=== PATIENT | female | born 1995 | race Caucasian/White ===

== ENCOUNTER 2019-11-09 05:23 | Inpatient (IN) | payer MEDICAID ==
[2019-11-09] MEDS ORDERED: Carboprost Tromethamine 250 MCG/1 ML Amp IM PRN (05:40)
[2019-11-09] MEDS ORDERED: Methylergonovine 0.2 MG/1 ML Amp IM PRN (05:40)
[2019-11-09] MEDS ORDERED: Misoprostol 200 MCG Tab PO PRN (05:40)
[2019-11-09] MEDS ORDERED: Water For Irrigation,Sterile 1,000 ML Container IRR PRN (05:40)
[2019-11-09] MEDS ORDERED: Sodium Chloride 0.9% 10 ML Syringe FLUSH PRN (05:40)
[2019-11-09] MEDS ORDERED: Tranexamic Acid 1,000 MG in Sodium Chloride 0.9% 100 ML IV PRN (05:40)
[2019-11-09] MEDS ORDERED: Nalbuphine 10 MG/1 ML Vial IVPUSH PRN (05:40)
[2019-11-09] MEDS ORDERED: Butorphanol 1 MG/ML SDV IVPUSH PRN (05:40)
[2019-11-09] MEDS ORDERED: Sodium Chloride 0.9% 2.5 ML Syringe FLUSH PRN (05:40)
[2019-11-09] MEDS ORDERED: Ondansetron 4 MG/2 ML SDV IVPUSH PRN (05:40)
[2019-11-09] MEDS ORDERED: Sodium Chloride 0.9% 10 ML SDV IV PRN (05:40)
[2019-11-09] MEDS ORDERED: Lidocaine 1% 50 ML MDV INJECT PRN (05:40)
[2019-11-09] MEDS: Lactated Ringers 1,000 ML IV SCH ×2 (05:45→07:38)
[2019-11-09] MEDS ORDERED: Oxytocin/0.9 % Sodium Chloride 30 UNIT/500 ML BAG IV SCH (05:45)
[2019-11-09] MEDS ORDERED: fentaNYL 100 MCG/2 ML SDV ONE (06:52)
[2019-11-09] MEDS ORDERED: Ropivacaine HCl/PF 100 ML ONE (06:52)
--- NOTE | 2019-11-09 07:14 | PCM.PREANE ---
Preanesthetic Assessment - Anesthesia/Transfusion/Family Hx Anesthesia History: Prior Anesthesia Without Reaction Family History of Anesthesia Reaction: No Transfusion History: No Prior Transfusion(s) Type of Transfusion Reactions: Reports: Unknown - Physical Assessment NPO Status Date: 11/09/19 NPO Status Time: 00:05 ASA Class: 2 - Lab Values: Laboratory Last Values WBC 14.00 K/uL (4.0-11.0) H 11/09/19 05:45 RBC 4.55 M/uL (4.30-5.90) 11/09/19 05:45 Hgb 13.3 g/dL (12.0-16.0) 11/09/19 05:45 Hct 39.6 % (36.0-46.0) 11/09/19 05:45 MCV 87.0 fL (80.0-98.0) 11/09/19 05:45 MCH 29.2 pg (27.0-32.0) 11/09/19 05:45 MCHC 33.6 g/dL (31.0-37.0) 11/09/19 05:45 RDW Std Deviation 41.7 fl (28.0-62.0) 11/09/19 05:45 RDW Coeff of Romario 13 % (11.0-15.0) 11/09/19 05:45 Plt Count 248 K/uL (150-400) 11/09/19 05:45 MPV 12.20 fL (7.40-12.00) H 11/09/19 05:45 Nucleated RBC % 0.0 /100WBC 11/09/19 05:45 Nucleated RBCs # 0 K/uL 11/09/19 05:45 Blood Type A POSITIVE 11/09/19 05:45 Antibody Screen NEGATIVE 11/09/19 05:45 - Allergies Allergies/Adverse Reactions: Allergies Allergy/AdvReac Type Severity Reaction Status Date / Time Penicillins Allergy Rash Verified 09/03/14 16:50 - Acknowledgements Anesthesia Type Planned: Epidural Pt an Appropriate Candidate for the Planned Anesthesia: Yes Alternatives and Risks of Anesthesia Discussed w Pt/Guardian: Yes Pt/Guardian Understands and Agrees with Anesthesia Plan: Yes PreAnesthesia Questionnaire - Past Health History Medical/Surgical History: Denies Medical/Surgical History - CURRENT (IN HOUSE) MEDS Current Meds: Current Medications Butorphanol Tartrate (Stadol) 1 mg IVPUSH Q1H PRN PRN Reason: Pain Carboprost Tromethamine (Hemabate Ds) 250 mcg IM ASDIRECTED PRN PRN Reason: Post Hemorrhage Lactated Ringer's (Ringers, Lactated) 1,000 mls @ 150 mls/hr IV ASDIRECTED [facility] Last Admin: 11/09/19 05:45 Dose: 999 mls/hr Oxytocin/Sodium Chloride (Oxytocin 30 Unit/500 Ml-Ns) 30 unit in 500 mls @ 999 mls/hr IV TITRATE [facility] Tranexamic Acid 1,000 mg/ (Sodium Chloride) 110 mls @ 660 mls/hr IV ONETIME PRN PRN Reason: Bleeding Lidocaine HCl (Xylocaine 1%) 50 ml INJECT ONETIME PRN PRN Reason: Laceration repair Methylergonovine Maleate (Methergine) 0.2 mg IM ASDIRECTED PRN PRN Reason: Post Hemorrhage Misoprostol (Cytotec) 200 mcg PO ONETIME PRN PRN Reason: Post Hemorrhage Nalbuphine HCl (Nubain) 10 mg IVPUSH Q1H PRN PRN Reason: Pain (severe 7-10) Ondansetron HCl (Zofran) 4 mg IVPUSH Q6H PRN PRN Reason: Nausea/Vomiting Sodium Chloride (Saline Flush) 10 ml FLUSH ASDIRECTED PRN PRN Reason: Keep Vein Open Sodium Chloride (Saline Flush) 2.5 ml FLUSH ASDIRECTED PRN PRN Reason: Keep Vein Open Sodium Chloride (Normal Saline) 10 ml IV ASDIRECTED PRN PRN Reason: IV Use Sterile Water (Sterile Water For Irrigation) 1,000 ml IRR ASDIRECTED PRN PRN Reason: delivery Discontinued Medications Fentanyl (Sublimaze) Confirm Administered Dose 100 mcg .ROUTE .STK-MED ONE Stop: 11/09/19 06:53 Ropivacaine (Naropin 0.2%) Confirm Administered Dose 100 mls @ as directed .ROUTE .STK-MED ONE Stop: 11/09/19 06:53
--- NOTE | 2019-11-09 07:18 | PCM.PRNOTE ---
- Free Text/Narrative Note: Anes NOte Patietn requests epidural for L&D> Sitting position. Level L3-L4 midline approach. Sterile techique. Chloraprep scrub to lumbar area. Sterile fenstrated drape applied. ' Epidural space acheived with ease using DIANE technique. DIANE at 5 cm. Epidural cath threaded 5 cm with ease. Cath secured at skin at 10 cm using sterile clear adhesive dressing. 0705 Test 3 cc 1.5% lido with epi negative. 0708 Load 10 cc 0.2 % ropivicaine with 1 mcg cc fentanyl in slow divided doses. 0711 Pump started with 90 cc same solution at 8 cc hr with 6 cc q 209 min prn bolus. Time with patient [id number] Uzair Yu PROGRAM MANAGEMENT MANAGER
[2019-11-09] MEDS ORDERED: Benzocaine/Menthol 20%-0.5% Spray 78 GM Cannister TOP PRN (08:58)
[2019-11-09] MEDS ORDERED: Bisacodyl 10 MG Supp RECTAL PRN (08:58)
[2019-11-09] MEDS ORDERED: Ibuprofen 400 MG Tab PO PRN (08:58)
[2019-11-09] MEDS ORDERED: Acetaminophen 500 MG Tab PO PRN ×2 (08:58)
[2019-11-09] MEDS ORDERED: Witch Hazel Medicated Pads 40/Jar TOP PRN (08:58)
[2019-11-09] MEDS ORDERED: Lanolin 100% Cream 7 GM Tube TOP PRN (08:58)
[2019-11-09] MEDS ORDERED: Docusate Sodium 100 MG Cap PO PRN (08:58)
[2019-11-09] MEDS: Ibuprofen 800 MG Tab PO PRN ×2 (13:15→21:05)
--- NOTE | 2019-11-09 14:55 | OR ---
SURGEON: Maxwell Watkins MD DATE OF PROCEDURE: 11/09/2019 INDICATION FOR PROCEDURE: A 24-year-old G2, P 1-0-0-1, at 40 weeks 0 days presenting with spontaneous labor. The patient was 6 cm dilated with regular contractions. She received an epidural with good pain control. She progressed to 9 cm and augmented with AROM with clear fluid. She became fully dilated and actively pushing with contractions. She had history of positive serology of HSV-1 and HSV-2. No active lesions were seen on exam. PREOPERATIVE DIAGNOSIS: Farias intrauterine at 40 weeks 0 days. POSTOPERATIVE DIAGNOSIS: Farias intrauterine at 40 weeks 0 days. PROCEDURE: Normal spontaneous vaginal delivery. ANESTHESIA: Epidural. ESTIMATED BLOOD LOSS: 300 mL. FINDINGS: Farias intrauterine at 40 weeks 0 days in cephalic presentation. Male fetus. score of 8 and 9. Weight of 8 pounds 2 ounces. Tight nuchal cord x1. DESCRIPTION OF PROCEDURE: The patient pushed with contractions for approximately 30 minutes with good descent, category 1 tracing. head delivered in occiput anterior position, restituted ROT. Tight nuchal cord x1 was noted. Anterior shoulder delivered easily followed by posterior shoulder and remaining body. Cord was reduced after delivery. Baby was initially cyanotic, but rapidly became pink, crying vigorously, and moving all extremities after stimulation. Baby was placed on maternal chest and evaluated by awaiting nursery staff. Umbilical cord was clamped and cut after 60 seconds and no longer pulsating. Umbilical cord gases were obtained. Placenta was removed with gentle traction on the umbilical cord. Uterus was firm and at umbilicus and bleeding was light. A small first-degree perineal laceration was noted and repaired with 3-0 Vicryl with a [id number] stitch. Hemostasis was confirmed. The patient tolerated the procedure well and was given care instructions. ALEX / TONY /[id number] MTDJean
[2019-11-10 09:00] VITALS: BP 122/76; PULSE 88
--- NOTE | 2019-11-10 11:07 | PCM.PNPP ---
- General Info Date of Service: 11/10/19 Functional Status: Reports: Pain Controlled, Tolerating Diet, Ambulating, Urinating, Other (Bleeding light.) - Review of Systems General: Reports: No Symptoms HEENT: Reports: No Symptoms Pulmonary: Reports: No Symptoms Cardiovascular: Reports: No Symptoms Gastrointestinal: Reports: No Symptoms Genitourinary: Reports: No Symptoms Musculoskeletal: Reports: No Symptoms Skin: Reports: No Symptoms Neurological: Reports: No Symptoms Psychiatric: Reports: No Symptoms - Patient Data Vital Signs - Most Recent: Last Vital Signs Temp 36.3 C 11/10/19 08:20 Pulse 88 11/10/19 08:20 Resp 18 11/10/19 08:20 BP 122/76 11/10/19 08:20 Pulse Ox 99 11/10/19 08:20 Weight - Most Recent: 256 lb Lab Results - Last 24 Hours: Laboratory Results - last 24 hr 11/10/19 Range/Units 05:50 Hgb 11.0 L (12.0-16.0) g/dL Hct 33.4 L (36.0-46.0) % Med Orders - Current: Current Medications Acetaminophen (Tylenol Extra Strength) 500 mg PO Q4H PRN PRN Reason: Pain Acetaminophen (Tylenol Extra Strength) 1,000 mg PO Q4H PRN PRN Reason: Pain Benzocaine/Menthol (Dermoplast Pain Relief 20%-0.5% [place]) 78 gm TOP ASDIRECTED PRN PRN Reason: Perineal Comfort Measure Last Admin: 11/09/19 10:49 Dose: 1 canister Bisacodyl (Dulcolax) 10 mg RECTAL ONETIME PRN PRN Reason: Constipation Butorphanol Tartrate (Stadol) 1 mg IVPUSH Q1H PRN PRN Reason: Pain Carboprost Tromethamine (Hemabate Ds) 250 mcg IM ASDIRECTED PRN PRN Reason: Post Hemorrhage Docusate Sodium (Colace) 100 mg PO BID PRN PRN Reason: Constipation Emollient Ointment (Lansinoh Hpa) 0 gm TOP ASDIRECTED PRN PRN Reason: Sore Nipples Lactated Ringer's (Ringers, Lactated) 1,000 mls @ 150 mls/hr IV ASDIRECTED ED Last Admin: 11/09/19 07:38 Dose: 125 mls/hr Oxytocin/Sodium Chloride (Oxytocin 30 Unit/500 Ml-Ns) 30 unit in 500 mls @ 999 mls/hr IV TITRATE ED Last Infusion: 11/09/19 10:30 Dose: Infused Tranexamic Acid 1,000 mg/ (Sodium Chloride) 110 mls @ 660 mls/hr IV ONETIME PRN PRN Reason: Bleeding Ibuprofen (Motrin) 400 mg PO Q4H PRN PRN Reason: Pain Ibuprofen (Motrin) 800 mg PO Q6H PRN PRN Reason: Pain Last Admin: 11/09/19 21:05 Dose: 800 mg Lidocaine HCl (Xylocaine 1%) 50 ml INJECT ONETIME PRN PRN Reason: Laceration repair Methylergonovine Maleate (Methergine) 0.2 mg IM ASDIRECTED PRN PRN Reason: Post Hemorrhage Misoprostol (Cytotec) 200 mcg PO ONETIME PRN PRN Reason: Post Hemorrhage Nalbuphine HCl (Nubain) 10 mg IVPUSH Q1H PRN PRN Reason: Pain (severe 7-10) Ondansetron HCl (Zofran) 4 mg IVPUSH Q6H PRN PRN Reason: Nausea/Vomiting Sodium Chloride (Saline Flush) 10 ml FLUSH ASDIRECTED PRN PRN Reason: Keep Vein Open Sodium Chloride (Saline Flush) 2.5 ml FLUSH ASDIRECTED PRN PRN Reason: Keep Vein Open Sodium Chloride (Normal Saline) 10 ml IV ASDIRECTED PRN PRN Reason: IV Use Sterile Water (Sterile Water For Irrigation) 1,000 ml IRR ASDIRECTED PRN PRN Reason: delivery Witch Carmen (Tucks) 1 pad TOP ASDIRECTED PRN PRN Reason: comfort care Discontinued Medications Fentanyl (Sublimaze) Confirm Administered Dose 100 mcg .ROUTE .STK-MED ONE Stop: 11/09/19 06:53 Ropivacaine (Naropin 0.2%) Confirm Administered Dose 100 mls @ as directed .ROUTE .STK-MED ONE Stop: 11/09/19 06:53 - Interaction Disposition, : [place] at Bedside Feeding: Bottle Fed Infant Support Person: Mother - Recovery Exam Fundal Tone: Firm Fundal Level: 1 Fingerbreadths Below Umbilicus Fundal Placement: Left Lochia Amount: Scant Lochia Color: Rubra/Red Perineum Description: Intact, Minimal Bruising/Swelling Episiotomy/Laceration: Approximated Urinary Elimination: Voided - Exam General: Alert, Oriented, Cooperative, No Acute Distress HEENT: Pupils Equal, Pupils Reactive, EOMI Neck: Supple, Trachea Midline, No JVD Lungs: Normal Respiratory Effort GI/Abdominal Exam: Soft, Non-Tender, No Distention Extremities: Normal Inspection, Normal Range of Motion, Non-Tender, No Pedal Edema Skin: Warm, Dry, Intact Wound/Incisions: Healing Well Neurological: No New Focal Deficit Psy/Mental Status: Alert, Normal Affect, Normal Mood - Problem List Review Problem List Initiated/Reviewed/Updated: Yes - My Orders Last 24 Hours: My Active Orders 11/10/19 10:56 Ready for Discharge [RC] PER UNIT ROUTINE - Assessment Assessment:: 24yo PPD1 s/p . Stable and recovering well. - Plan Plan:: Vital stable Hgb 11.2, no s/s of anemia, advised to start iron supplements Ambulating and voiding Bottlefeeding baby Stable for discharge home, reviewed care instructions
== END 2019-11-10 12:50 | disposition home or self-care (01) | DRG 807 ==
LOC: MW.OBCHECK 05:23 → MW.OB 05:24 → MW.OBCHECK 05:36 → MW.OB 05:36 → OBSVTOIN 08:58 → MW.OB 12:00
PROVIDERS: ADMIT Obstetrics & Gynecology; ATTEND Obstetrics & Gynecology
PROC: 10E0XZZ Delivery of Products of Conception, External Approach (ICD-10-PCS; principal; 2019-11-09)
PROC: 10907ZC Drainage of Amniotic Fluid, Therapeutic from Products of Conception, Via Natural or Artificial Opening (ICD-10-PCS; 2019-11-09)
PROC: 0HQ9XZZ Repair Perineum Skin, External Approach (ICD-10-PCS; 2019-11-09)
PROC: 3E0R3BZ Introduction of Anesthetic Agent into Spinal Canal, Percutaneous Approach (ICD-10-PCS; 2019-11-09)
PROC: 00HU33Z Insertion of Infusion Device into Spinal Canal, Percutaneous Approach (ICD-10-PCS; 2019-11-09)
DX: O69.1XX0 Labor and delivery complicated by cord around neck, with compression, not applicable or unspecified (principal); Z37.0 Single live birth; O70.0 First degree perineal laceration during delivery; Z3A.40 40 weeks gestation of pregnancy
CPT/HCPCS: 36415; 59020; 59409; 85014; 85018; 85027; 86593; 86850; 86900; 86901; A9270-GY; J2590; J7120

== ENCOUNTER 2022-04-29 14:21 | Emergency (ER) | payer MEDICAID ==
[2022-04-29] MEDS ORDERED: Acetaminophen/oxyCODONE 325-5 MG Tab PO ONE (15:51)
[2022-04-29] MEDS ORDERED: Clindamycin HCl 150 MG Cap PO ONE (16:44)
[2022-04-29 17:18] VITALS: BP 132/70; PULSE 87
== END 2022-04-29 17:18 | disposition home or self-care (01) ==
LOC: MW.ED 14:21
DX: S02.69XB Fracture of mandible of other specified site, initial encounter for open fracture (principal); W05.1XXA Fall from non-moving nonmotorized scooter, initial encounter
CPT/HCPCS: 70486; 99283; A9270; 99284